=== PATIENT | female | born 1990 | race Caucasian/White ===

== ENCOUNTER 2019-12-16 14:48 | Inpatient (IN) ==
[2019-12-16] MEDS ORDERED: HYDROmorphone INJ 0.5 MG/0.5 ML SYR IV STA (15:47)
[2019-12-16] MEDS ORDERED: KETOROLAC 30 MG/ML VIAL IV STA (15:47)
[2019-12-16] MEDS ORDERED: CYCLOBENZAPRINE HCL 10 MG TAB PO STA (15:47)
--- NOTE | 2019-12-16 15:53 | Emergency Department Note ---
History of Present Illness General Chief Complaint: Back Injury/Pain Stated Complaint: HERNIATED DISC History of Present Illness This patient is a 29-year-old female who presents ambulatory to the emergency department for evaluation of severe back pain down the back of her left leg. This pain has been ongoing. The patient was seen in the emergency department last evening. She followed up as scheduled with Dr. Muir this morning. They report that they are going to likely schedule surgery. The patient was discharged home with prednisone and oxycodone. She has been taking her medication as prescribed with no relief. She denies any urinary or bowel incontinence, however it is harder to urinate. She does report some tingling into the left side of her genitalia. She denies any weakness in her legs bilaterally. Home Medications Home Medications Medication Instructions Recorded Confirmed Type acetaminophen [Tylenol Extra 500 mg PO Q6H PRN 12/05/19 12/05/19 History Strength] oxycodone 5 mg PO BID PRN 12/05/19 12/05/19 History methylprednisolone [Medrol (Wilver)] 4 mg PO DAILY #21 ea 12/15/19 Rx oxycodone 5 mg PO Q4H PRN #15 tab 12/15/19 Rx Allergies Allergy/AdvReac Type Severity Reaction Status Date / Time No Known Allergies Allergy Verified 12/05/19 14:19 Past Med/Surg History Medical History Chronic back pain Surgical History History of tooth extraction wisdom teeth Family History Grandmother Diabetes Social History Preferred Language: Syriac Communication Ability: Effective Pharmacy Coordinator Required: No Beliefs That Will Affect Care: None marital status: Single Current Living Situation: Alone current occupational status: student Other Information That Helps Us Care for You: No Feels Safe at Home: Yes Safety Concerns: Feels Safe At This Time Smoking Status: Never smoker Second Hand Exposure: No ; Hx Alcohol Use: Yes Alcohol type: wine Hx Substance Use: No Review of Systems A total of 10 systems reviewed and were otherwise negative Physical Exam Vital Signs Vital Signs - 24 hr 12/16/19 14:53 Temperature 36.9 C Temperature Source Oral Pulse Rate 107 H Respiratory Rate 18 Respiratory Effort / Characteristics Non-Labored Respiratory Depth Normal Respiratory Pattern Regular Blood Pressure 123/77 Blood Pressure Mean 92 Blood Pressure Position Sitting Pulse Oximetry 99 Oxygen Delivery Method Room Air Sepsis Recent Fever Within 48 Hours No Sepsis New/Unexplained Change in Mental Status No Sepsis Action Taken by Nursing No Action Required Constitutional WD/WN, vitals as above Eyes EOM intact bilaterally ENMT external ear and nose normal, oropharynx normal Neck trachea midline Respiratory normal respiratory effort, lungs clear to auscultation Cardiovascular RRR, no murmur, no edema Musculoskeletal Tenderness to palpation over the lumbar spinous processes and left SI joint. Dorsiflexion of the left foot 4/5. Dorsiflexion of the right foot 5/5. Plantar flexion left foot 4/5. Plantar flexion right foot 5/5. Quadricep and hamstring strength 5/5 bilaterally. Sensation in the lower extremities intact bilaterally. Skin no rashes, warm and dry Neurologic Alert and oriented x3. No focal motor deficits. Psychiatric Acting appropriately Course Course Patient was seen and examined Vital signs including blood pressure were reviewed medications list was verified with patient Labs were obtained, and a saline lock was established Medications ordered. Case was discussed with the spine orthopedic team. Patient was reassessed. We discussed the plan. She was comfortable with this plan. The case was also discussed with the hospitalist team. They agreed to admit the patient for further pain management. Consultations Consultation #1: Bishop Kaye PA-C spine surgery Consultation #2: [facility] hospitalist team Administered Medications Acetaminophen (Tylenol) 650 mg PO Q4H PRN PRN Reason: pain/fever Stop: 01/15/20 19:39 Last Admin: 12/16/19 23:32 Dose: 650 mg Documented by: [id number] Cyclobenzaprine HCl (Flexeril) 10 mg PO TID BRENNA Stop: 01/15/20 20:59 Last Admin: 12/17/19 20:46 Dose: 10 mg Documented by: [id number] Admin: 12/17/19 14:41 Dose: 10 mg Documented by: [id number] Admin: 12/17/19 08:35 Dose: 10 mg Documented by: [id number] Admin: 12/16/19 20:36 Dose: 10 mg Documented by: [id number] Docusate Sodium (Colace) 100 mg PO BID [facility] Stop: 01/16/20 20:59 Last Admin: 12/17/19 20:46 Dose: 100 mg Documented by: [id number] Lactated Ringer's (Lr) 1,000 mls @ 80 mls/hr IV .[id number] [facility] Stop: 12/18/19 18:10 Last Admin: 12/17/19 20:49 Dose: 80 mls/hr Documented by: [id number] Ketorolac Tromethamine (Toradol) 30 mg IV Q6H PRN PRN Reason: Pain Stop: 12/21/19 19:39 Last Admin: 12/17/19 19:25 Dose: 30 mg Documented by: [id number] Admin: 12/16/19 22:27 Dose: 30 mg Documented by: [id number] Morphine Sulfate (Morphine Sulfate) 2 mg IV Q2H PRN PRN Reason: Pain Stop: 12/31/19 03:38 Last Admin: 12/17/19 10:51 Dose: 2 mg Documented by: [id number] Admin: 12/17/19 08:36 Dose: 2 mg Documented by: [id number] Discontinued Medications Bacitracin (Bacitracin) Confirm Administered Dose 50,000 units .ROUTE .STK-MED ONE Stop: 12/17/19 16:14 Last Admin: 12/17/19 17:10 Dose: 50,000 units Documented by: [id number] Bupivacaine HCl/Epinephrine Bitart (Sensorcaine/Epinephrine 0.5% Mpf 1:200,000) Confirm Administered Dose 30 ml .ROUTE .STK-MED ONE Stop: 12/17/19 16:14 Last Admin: 12/17/19 16:58 Dose: 15 ml Documented by: [id number] Cefazolin Sodium (Ancef 1000mg) Confirm Administered Dose 1,000 mg IV .STK-MED ONE Stop: 12/17/19 15:58 Last Admin: 12/17/19 16:27 Dose: 1,000 mg Documented by: [id number] Cyclobenzaprine HCl (Flexeril) 10 mg PO NOW STA Stop: 12/16/19 15:48 Last Admin: 12/16/19 16:19 Dose: 10 mg Documented by: [id number] Cyclobenzaprine HCl (Flexeril) 10 mg PO NOW STA Stop: 12/16/19 17:10 Last Admin: 12/16/19 17:31 Dose: Not Given Documented by: [id number] Enoxaparin Sodium (Lovenox) 40 mg SQ Q24H BRENNA Stop: 01/15/20 20:59 Last Admin: 12/16/19 20:57 Dose: Not Given Documented by: [id number] Fentanyl Citrate (Fentanyl Citrate) 100 mcg IV NOW STA Stop: 12/17/19 15:46 Last Admin: 12/17/19 15:50 Dose: 100 mcg Documented by: [id number] Fentanyl Citrate (Fentanyl Citrate) Confirm Administered Dose 100 mcg .ROUTE .STK-MED ONE Stop: 12/17/19 15:49 Last Admin: 12/17/19 18:44 Dose: Not Given Documented by: [id number] Hydromorphone HCl (Dilaudid) 0.5 mg IV NOW STA Stop: 12/16/19 15:48 Last Admin: 12/16/19 16:19 Dose: 0.5 mg Documented by: [id number] Hydromorphone HCl (Dilaudid) 0.5 mg IV Q6H PRN PRN Reason: Pain Stop: 12/30/19 19:39 Last Admin: 12/17/19 02:05 Dose: 0.5 mg Documented by: [id number] Admin: 12/16/19 19:54 Dose: 0.5 mg Documented by: [id number] Cefazolin Sodium (Ancef 1000mg) 1,000 mg in 7.5 mls @ 2.5 mls/min IV PREOP BRENNA Stop: 12/17/19 18:00 Last Admin: 12/17/19 18:45 Dose: Not Given Documented by: [id number] Ketorolac Tromethamine (Toradol) 30 mg IV NOW STA Stop: 12/16/19 15:48 Last Admin: 12/16/19 16:19 Dose: 30 mg Documented by: [id number] Miscellaneous (Floseal Hemostatic Matrix 10ml) 10 ml TOP ONCE ONE Stop: 12/17/19 17:01 Last Admin: 12/17/19 17:12 Dose: 3 ml Documented by: [id number] Morphine Sulfate (Morphine Sulfate) Confirm Administered Dose 2 mg .ROUTE .STK-MED ONE Stop: 12/17/19 03:48 Last Admin: 12/17/19 03:50 Dose: 2 mg Documented by: [id number] Medical Decision Making Differential Diagnosis lumbar radiculopathy, strain of lumbar region, infection, lumbago, cauda equina and cord compression Medical Records Attestation: I reviewed the patient's medical records. Home Medications Current Medication List: was personally reviewed by me Laboratory Data Attestation: I reviewed the patient's lab results. Result diagrams: 12/17/19 08:15 12/17/19 08:15 Lab Results 12/16/19 12/16/19 12/16/19 Range/Units 16:05 16:05 16:05 WBC 17.29 H D (4.8-10.8) K/uL RBC 4.10 L (4.2-5.4) M/uL Hgb 13.9 (12.0-16.0) g/dL Hct 40.2 (37-47) % MCV 98.0 (80-100) fL MCH 33.9 (25-34) pg MCHC 34.6 (32-36) g/dL RDW Std Deviation 45.9 (36.4-46.3) fL RDW Coeff of Ciro 12.8 (11.5-14.5) % Plt Count 276 (130-400) K/uL MPV 9.6 (7.4-10.4) fL Immature Gran % (Auto) 0.3 % Neut % (Auto) 84.9 % Lymph % (Auto) 8.6 % [place] % (Auto) 6.0 % Eos % (Auto) 0.1 % Baso % (Auto) 0.1 % Immature Gran # (Auto) 0.05 H (0.00-0.02) K/uL Neut # (Auto) 14.71 H (1.4-6.5) K/uL Lymph # (Auto) 1.48 (1.2-3.4) K/uL [place] # (Auto) 1.03 H (0.11-0.59) K/uL Eos # (Auto) 0.01 (0-0.5) K/uL Baso # (Auto) 0.01 (0-0.2) K/uL Sodium 137 (136-145) mmol/L Potassium 3.7 (3.5-5.1) mmol/L Chloride 105 (98-107) mmol/L Carbon Dioxide 25 (21-32) mmol/L Anion Gap 7.0 (3-11) BUN 17 (7-18) mg/dl Creatinine 0.86 (0.6-1.2) mg/dl Est Cr Clr Drug Dosing 85.3 ml/min Est GFR ( Amer) 104.3 Est GFR (Non-Af Amer) 90.0 BUN/Creatinine Ratio 19.6 (10-20) Glucose 100 H (70-99) mg/dl Calcium 9.6 (8.5-10.1) mg/dl HCG, Qual Negative (Negative) Imaging Data Attestation: I personally reviewed and interpreted this imaging study as follows: MDM Narrative This patient is a 29-year-old female that presents to the emergency department complaining of ongoing severe back and leg pain. She was seen in the emergency department yesterday. Past medical records were reviewed. The patient had a recent MRI. She does have a large bulge disc. This is likely the cause of her symptoms. Case was discussed with orthopedics. As she has failed outpatient management with oxycodone steroids, hospitalist and orthopedics was consulted. Inpatient management was felt appropriate. The patient was in agreement. Impression & Plan Herniated nucleus pulposus, L5-S1, left Discharge Plan Visit Data *Final* Discharge Date/Time: 12/16/19 19:23 Chief Complaint: Back Injury/Pain Stated Complaint: HERNIATED DISC ED Provider: Chris Cote ED Midlevel Provider: Keara Smith Discharge Problem: Herniated nucleus pulposus, L5-S1, left Patient Disposition: Admitted As Inpatient Condition: Fair Discharge Instructions Interventions: ED Discharge Assessment Last Done: 12/16/19 19:23
[2019-12-16 16:26] LABS: Basophils # (auto) 0.01 K/uL (0-0.2); Basophils % (auto) 0.1 %; Eosinophils # (auto) 0.01 K/uL (0-0.5); Eosinophils % (auto) 0.1 %; Hematocrit (blood only) 40.2 % (37-47); Hemoglobin 13.9 g/dL (12.0-16.0); Immature Granulocytes # (auto) 0.05 K/uL (0.00-0.02); Immature Granulocytes % (auto) 0.3 %; Lymphocytes # (auto) 1.48 K/uL (1.2-3.4); Lymphocytes % (auto) 8.6 %; Mean Corpuscular Hemoglobin 33.9 pg (25-34); Mean Corpuscular Hgb Conc 34.6 g/dL (32-36); Mean Platelet Volume 9.6 fL (7.4-10.4); Monocytes # (auto) 1.03 K/uL (0.11-0.59); Neutrophils # (auto) 14.71 K/uL (1.4-6.5); Neutrophils % (auto) 84.9 %; Platelet Count 276 K/uL (130-400); RDW Coefficient of Variation 12.8 % (11.5-14.5); RDW Standard Deviation 45.9 fL (36.4-46.3); White Blood Count 17.29 K/uL (4.8-10.8)
[2019-12-16 16:43] LABS: BUN Creatinine Ratio 19.6 (10-20); Calcium 9.6 mg/dl (8.5-10.1); Creatinine Clr Calc Pharmacy 85.3 ml/min; Est GFR (African American) 104.3; Potassium 3.7 mmol/L (3.5-5.1)
[2019-12-16 17:00] LABS: Pregnancy Test, Serum Negative (Negative)
[2019-12-16] MEDS: CYCLOBENZAPRINE HCL 10 MG TAB PO STA ×2 (17:25→17:31)
--- NOTE | 2019-12-16 18:33 | History & Physical Report ---
Date of Service December 16, 2019 Assessment & Plan (1) Left lumbar radiculitis: Patient has a severely herniated L5-S1 disc. Will admit for pain management. I discussed defer modalities and the patient is doing well with the combination of drugs that were given in the emergency room as well continues. I did discuss steroids and the patient is refusing further IV steroids at this time. Will consult Dr. Muir service. As requested, will keep patient n.p.o. for now. Patient was told she can ambulate to tolerance but should let nursing know beforehand. History of Present Illness Primary Care Provider: [facility] This is a 29-year-old female with a past medical history that presents today complaining of severe back pain with radiculopathy. Patient is a good his brendan, accompanied by her mother. Patient had a minor injury when lifting a box back in September. This resulted in slow worsening of lower back pain. Pain became quite severe and she sought medical attention with pain management. She actually had an epidural steroid injection on 12/[address] Sun that was unsuccessful. Patient initial evaluation at Dr. Mai's office with eventual plans for some surgical intervention. However, the pain became very severe despite multiple oral medications and the patient presented here for further management. In the time my evaluation, the patient was much more comfortable. She been given Flexeril, Toradol, and Dilaudid which seemed to help. The emergency room PA has already been in contact Dr. Muir service and there tentative plans for possible surgical intervention in the morning. Patient will therefore be made n.p.o. overnight until she is evaluated in the morning by their service. Allergies Allergy/AdvReac Type Severity Reaction Status Date / Time No Known Allergies Allergy Verified 12/05/19 14:19 Home Medications Home Medications Medication Instructions Recorded Confirmed Type acetaminophen [Tylenol Extra 500 mg PO Q6H PRN 12/05/19 12/05/19 History Strength] oxycodone 5 mg PO BID PRN 12/05/19 12/05/19 History methylprednisolone [Medrol (Wilver)] 4 mg PO DAILY #21 ea 12/15/19 Rx oxycodone 5 mg PO Q4H PRN #15 tab 12/15/19 Rx Past Med/Surg History Medical History Chronic back pain Surgical History History of tooth extraction wisdom teeth Family History Grandmother Diabetes Social History Preferred Language: Gambian Communication Ability: Effective Lettuce Cutter Required: No Beliefs That Will Affect Care: None marital status: Single Current Living Situation: Alone current occupational status: student Feels Safe at Home: Yes Smoking Status: Never smoker Second Hand Exposure: No ; Hx Alcohol Use: Yes Alcohol type: wine Hx Substance Use: No Review of Systems Constitutional: no fever, no chills, no weakness, no weight loss and no weight gain Eyes: as per Subjective / HPI Respiratory: no cough, no chest congestion, no dyspnea and no dyspnea on exertion Cardiovascular: no chest pain, no orthopnea, no palpitations, no lightheadedness and no edema Gastrointestinal: no abdominal pain, no nausea, no vomiting, no constipation and no diarrhea/loose stools Genitourinary: no dysuria, no difficulty urinating, no urinary frequency, no urinary hesitancy, no urinary urgency and no flank pain Musculoskeletal: + back pain and + myalgia; no neck pain, no joint pain and no stiffness Integumentary: no rash Neurologic: no gait abnormality, no unsteadiness, no falls and no generalized weakness Physical Exam Constitutional: cooperative; no acute distress Neck: trachea midline, no thyromegaly Respiratory: normal respiratory effort Auscultation: lungs clear to ausc ultation bilaterally; no crackles, no rales, no rhonchi and no wheezes Cardiovascular: Rate/Rhythm: regular rate and regular rhythm Heart Sounds: normal S1, normal S2 and + murmur Gastrointestinal (Abdomen): Inspection/Auscultation: abdomen normal to inspection Percussion/Palpation: abdomen soft; abdomen nontender, no guarding, abdomen not rigid and no hepatosplenomegaly Skin: no rashes, warm and dry Results & Data Vital Signs (Past 12 Hours) Vital Signs Temp Pulse Pulse Resp BP BP Pulse Ox 12/16/19 16:26 78 20 129/74 100 12/16/19 14:53 36.9 C 107 H 18 123/77 99 Diagnostic Findings MR lumbar spine wo con CLINICAL HISTORY: Back pain with left-sided radiculopathy. TECHNIQUE: Sagittal and axial T1, T2 and STIR images were obtained. COMPARISON STUDY: No previous studies for comparison. OBSERVATIONS: The vertebral bodies and posterior elements appear intact. There is no abnormal bony signal present to suggest a marrow replacement process. L1-2: No disc protrusions or extrusions. No evidence of spinal canal or neural foraminal compromise. L2-3: No disc protrusions or extrusions. No evidence of spinal canal or neural foraminal compromise. L3-4: There is a small broad-based central disc protrusion with minimal deformity of the anterior thecal sac. There is no significant foraminal narrowing L4-5: There is an annular fissure and mild circumferential disc bulge. There is no significant spinal or foraminal stenosis L5-S1: There is a very large left-sided extruded disc herniation. Disc material fills the left lateral recess and impinges on the left S1 nerve root. The disc material at the level of the left lateral recess measures approximately 13 mm. The conus medullaris and cauda equina appear normal. IMPRESSION: 1. Very large left-sided extruded disc herniation at the L5-S1 level. Disc material fills the left lateral recess and impinges on the left S1 nerve root. 2. Small broad-based central disc protrusion at the L3-4 level, and annular fissure and mild circumferential disc bulge at the L4-5 level. PG Care Time/CCT Total # of Minutes Spent Total Time Spent with Patient: Total time spent is greater than 50% in coordination of care (as documented) at patient's floor/unit and/or counseling patient: Coding Level of Care Code 12407 Initial Inpt Care Lvl 3 Diagnoses Left lumbar radiculitis M54.16
[2019-12-16] MEDS ORDERED: ZOLPIDEM TARTRATE 5 MG TAB PO PRN (19:40)
[2019-12-16] MEDS ORDERED: ONDANSETRON INJ 2 MG/ML 2 ML VIAL IV PRN (19:40)
[2019-12-16] MEDS: HYDROmorphone INJ 0.5 MG/0.5 ML SYR IV PRN (19:54)
[2019-12-16] MEDS: CYCLOBENZAPRINE HCL 10 MG TAB PO SCH (20:36)
[2019-12-16] MEDS ORDERED: ENOXAPARIN INJ 40 MG/0.4 ML SYR SQ SCH (21:00)
[2019-12-16 21:27] LABS: Appearance Urine Clear (Clear); Bacteria Urine Automated 1+ (Negative); Bilirubin Urine Negative (Negative); Blood Urine Negative (Negative); Color Urine Dark Yellow; Epithelial Cell Urine Auto >30 /lpf (0-5); Glucose Urine UA Negative (Negative); Ketones Urine Negative (Negative); Leukocyte Esterase Urine Trace (Negative); Nitrite Urine Negative (Negative); Protein Urine Negative (Negative); RBC Urine Automated 0-4 /hpf (0-4); Specific Gravity Urine 1.032 (1.000-1.030); Urobilinogen Urine Negative (Negative); pH Urine 5.5 (4.5-7.5)
[2019-12-16] MEDS: KETOROLAC 30 MG/ML VIAL IV PRN (22:27)
[2019-12-16] MEDS: ACETAMINOPHEN 325 MG TAB PO PRN (23:32)
[2019-12-17] MEDS: HYDROmorphone INJ 0.5 MG/0.5 ML SYR IV PRN (02:05)
[2019-12-17] MEDS ORDERED: MoRPHine SULFATE 2 MG/ML CARP ONE (03:47)
[2019-12-17] MEDS: CYCLOBENZAPRINE HCL 10 MG TAB PO SCH ×3 (08:35→20:46)
[2019-12-17] MEDS: MoRPHine SULFATE 2 MG/ML CARP IV PRN ×2 (08:36→10:51)
[2019-12-17 08:47] LABS: Basophils # (auto) 0.02 K/uL (0-0.2); Basophils % (auto) 0.3 %; Eosinophils # (auto) 0.04 K/uL (0-0.5); Eosinophils % (auto) 0.5 %; Hematocrit (blood only) 37.3 % (37-47); Hemoglobin 12.5 g/dL (12.0-16.0); Immature Granulocytes # (auto) 0.02 K/uL (0.00-0.02); Immature Granulocytes % (auto) 0.3 %; Lymphocytes # (auto) 2.62 K/uL (1.2-3.4); Lymphocytes % (auto) 34.7 %; Mean Corpuscular Hgb Conc 33.5 g/dL (32-36); Mean Corpuscular Volume 98.4 fL (80-100); Mean Platelet Volume 9.7 fL (7.4-10.4); Monocytes # (auto) 0.64 K/uL (0.11-0.59); Monocytes % (auto) 8.5 %; Neutrophils # (auto) 4.21 K/uL (1.4-6.5); Neutrophils % (auto) 55.7 %; Platelet Count 209 K/uL (130-400); RDW Coefficient of Variation 13.2 % (11.5-14.5); RDW Standard Deviation 47.2 fL (36.4-46.3); Red Blood Count 3.79 M/uL (4.2-5.4); White Blood Count 7.55 K/uL (4.8-10.8)
[2019-12-17 09:12] LABS: Calcium 8.8 mg/dl (8.5-10.1); Creatinine Clr Calc Pharmacy 99.1 ml/min; Est GFR (African American) 125.1; Magnesium 2.1 mg/dl (1.8-2.4); Potassium 3.9 mmol/L (3.5-5.1)
--- NOTE | 2019-12-17 12:25 | Orthopedic Consultation ---
Date of Consultation December 17, 2019 Assessment & Plan (1) Herniated nucleus pulposus, L5-S1, left: At this time a long discussion with the patient and her mother reviewing her MRI findings clinical course and recommendations. This point she would like to pursue surgical intervention. Would require a lumbar laminectomy L5-S1 the left with excision of herniated free fragment. Risk benefits pros cons and alternatives were outlined in detail. Risks include but not limited to from anesthesia blindness stroke paralysis nerve damage blood los requiring transfusion infection requiring reoperation benefits hopefully marked improvement of her radicular symptoms. At this time we will try to perform surgery as soon as possible she is n.p.o. at this time. Present on Admission?: Yes History of Present Illness Reason for Consultation: Back and leg pain Attending Physician: Albert Crooks History of Present Illness This is a 29-year-old female that had several weeks of severe back and left leg pain. She is tried a course of nonoperative care medications and therapy without any improvement. Her symptoms involve the left buttock posterior thigh extending into the calf. She is noting significant deficits to strength in the left calf. The right lower extremity is asymptomatic. She denies any loss of bowel bladder control. Allergies Allergy/AdvReac Type Severity Reaction Status Date / Time No Known Allergies Allergy Verified 12/05/19 14:19 Home Medications Home Medications Medication Instructions Recorded Confirmed Type acetaminophen [Tylenol Extra 500 mg PO Q6H PRN 12/05/19 12/05/19 History Strength] oxycodone 5 mg PO BID PRN 12/05/19 12/05/19 History methylprednisolone [Medrol (Wilver)] 4 mg PO DAILY #21 ea 12/15/19 Rx oxycodone 5 mg PO Q4H PRN #15 tab 12/15/19 Rx Patient History Medical History Chronic back pain Surgical History History of tooth extraction wisdom teeth Family History Grandmother Diabetes Social History Preferred Language: Sami Communication Ability: Effective Cartoon Animator Required: No Beliefs That Will Affect Care: None marital status: Single Current Living Situation: Alone current occupational status: student Other Information That Helps Us Care for You: No Feels Safe at Home: Yes Safety Concerns: Feels Safe At This Time Smoking Status: Never smoker Second Hand Exposure: No ; Hx Alcohol Use: Yes Alcohol type: wine Hx Substance Use: No Physical Exam Physical Exam: Patient is alert and oriented. She exhibits marked tension signs straight leg is on the left negative on the right. She is unable to perform single heel raise on the left compared to the right. Sensory is intact. Results [facility] Vital Signs (Past 12 Hours) Vital Signs Temp Pulse Resp BP Pulse Ox 12/17/19 07:48 36.8 C 74 16 107/64 99
[2019-12-17] MEDS ORDERED: NEOSTIGMINE METHYLSULFATE 1 MG/ML 10ML VIAL ONE (15:04)
[2019-12-17] MEDS ORDERED: fentaNYL citrate 100 MCG/2 ML VIAL ONE ×2 (15:04→15:48)
[2019-12-17] MEDS ORDERED: MIDAZOLAM HCL 1 MG/ML 2ML VIAL ONE (15:04)
[2019-12-17] MEDS ORDERED: HYDROmorphone INJ 2 MG/ML SYR/VIAL ONE (15:04)
[2019-12-17] MEDS ORDERED: LIDOCAINE HCL 2% 2 ML VIAL/AMP(20MG/ML) INFIL ONE (15:04)
[2019-12-17] MEDS ORDERED: PROPOFOL IV EMULSION 10 MG/ML 20 ML VIAL IV ONE (15:04)
[2019-12-17] MEDS ORDERED: ROCURONIUM BROMIDE 10 MG/ML 5 ML VIAL ONE (15:04)
[2019-12-17] MEDS ORDERED: ONDANSETRON INJ 2 MG/ML 2 ML VIAL ONE (15:04)
[2019-12-17] MEDS ORDERED: GLYCOPYRROLATE 0.2 MG/ML VIAL ONE (15:04)
[2019-12-17] MEDS ORDERED: DEXAMETHASONE SOD INJ 4 MG/ML VIAL ONE (15:04)
[2019-12-17] MEDS ORDERED: fentaNYL citrate 100 MCG/2 ML VIAL IV STA (15:45)
--- NOTE | 2019-12-17 15:45 | Anesthesiology Consultation ---
Date of Service December 17, 2019 Assessment & Plan (1) Encounter for pre-operative examination: Chart Review Chart Review: Acceptable Risk for Surgery and Patient NOT seen in Pre Admission Testing Consults Requested none ASA ASA1 Proposed Anesthesia Anesthesia Type: General Risk / Benefits Reviewed With: PT / POA / Parent / Guardian, Accepts Plan and Informed Consent Obtained History Surgery Operation Date: 12/17/19 08:55 Proposed Procedures p L5-S1 Laminectomy on Left - Arsh Muir, Height/Weight Height: 5 ft 5 in Weight: 57.5 kg Allergies Allergy/AdvReac Type Severity Reaction Status Date / Time No Known Allergies Allergy Verified 12/05/19 14:19 Medications Home Medications Medication Instructions Recorded Confirmed Last Taken acetaminophen [Tylenol Extra 500 mg PO Q6H PRN 12/05/19 12/05/19 Unknown Strength] oxycodone 5 mg PO BID PRN 12/05/19 12/05/19 Unknown methylprednisolone [Medrol (Wilver)] 4 mg PO DAILY #21 ea 12/15/19 Unknown oxycodone 5 mg PO Q4H PRN #15 tab 12/15/19 Unknown Active Medications Generic Name Dose Route Start Last Admin Trade Name Freq PRN Reason Stop Dose Admin Acetaminophen 650 mg 12/16/19 19:40 12/16/19 23:32 Tylenol PO 01/15/20 19:39 650 mg Q4H PRN Administration pain/fever Cyclobenzaprine HCl 10 mg 12/16/19 21:00 12/17/19 14:41 Flexeril PO 01/15/20 20:59 10 mg TID BRENNA Administration Enoxaparin Sodium 40 mg 12/16/19 21:00 12/16/19 20:57 Lovenox SQ 01/15/20 20:59 Not Given Q24H BRENNA Ketorolac Tromethamine 30 mg 12/16/19 19:40 12/16/19 22:27 Toradol IV 12/21/19 19:39 30 mg Q6H PRN Administration Pain Morphine Sulfate 2 mg 12/17/19 03:39 12/17/19 10:51 Morphine Sulfate IV 12/31/19 03:38 2 mg Q2H PRN Administration Pain NPO Date Last Intake of Fluids: 12/17/19 Time Last Intake of Fluids: 00:00 Last Intake of Fluids Comment: sips/ice chips Date Last Intake of Solids: 12/16/19 Time Last Intake of Solids: 22:00 Past Medical History Medical History Chronic back pain Exercise / Class Metabolic Activity II 4-5 Yardwork/Stairs/Walk up hill Past Family History Family History Grandmother Diabetes Past Surgical History Surgical History History of tooth extraction wisdom teeth Past Anesthesia History No Hx of Anesthesia Complications and No Family Hx of Anesthesia Complications History of PONV No Hx of PONV and No Hx of Motion Sickness Social History Smoking Status: Never smoker Hx Alcohol Use: Yes Alcohol type: wine alcohol intake frequency: a few times a week Hx Substance Use: No substance use type: does not use Physical Exam Vital Signs Last Vital Signs Temp 36.9 C 12/17/19 15:15 Pulse 72 12/17/19 15:15 Resp 18 12/17/19 15:15 BP 110/70 12/17/19 15:15 Pulse Ox 100 12/17/19 15:15 ENMT Mouth: no dentition abnormality Thyromental Distance: > or= 3.5 Finger Breadths Mallampati Class: II Neck normal visual inspection Respiratory normal respiratory effort Auscultation: lungs clear to auscultation bilaterally Cardiovascular Rate/Rhythm: regular rate and regular rhythm Psychiatric Orientation: alert Testing Laboratory Results 12/17/19 08:15 12/17/19 08:15 Urine Color Dark Yellow 12/16/19 21:00 Urine Appearance Clear (Clear) 12/16/19 21:00 Urine pH 5.5 (4.5-7.5) 12/16/19 21:00 Ur Specific [place] 1.032 (1.000-1.030) H 12/16/19 21:00 Urine Protein Negative (Negative) 12/16/19 21:00 Urine Glucose (UA) Negative (Negative) 12/16/19 21:00 Urine Ketones Negative (Negative) 12/16/19 21:00 Urine Nitrite Negative (Negative) 12/16/19 21:00 Ur Leukocyte Esterase Trace (Negative) H 12/16/19 21:00 Urine WBC (Auto) 10-30 /hpf (0-5) H 12/16/19 21:00 Urine RBC (Auto) 0-4 /hpf (0-4) 12/16/19 21:00 U Hyaline Cast (Auto) 5-10 /lpf (0-5) H 12/16/19 21:00 U Epithel Cells (Auto) >30 /lpf (0-5) H 12/16/19 21:00 Urine Bacteria (Auto) 1+ (Negative) H 12/16/19 21:00 12/16/19 21:00 Urine Culture - Preliminary Urine,Clean Catch Pin-point growth present, reincubating.
[2019-12-17] MEDS ORDERED: CEFAZOLIN 1,000 MG/7.5 ML IV PUSH IV ONE (15:57)
[2019-12-17] MEDS ORDERED: CEFAZOLIN 1000MG 1,000 MG/7.5 ML SYR IV SCH ×2 (16:00)
[2019-12-17] MEDS ORDERED: BACITRACIN INJ 50,000 UNIT VIAL ONE (16:13)
[2019-12-17] MEDS ORDERED: BUPIVACAINE/EPINEPHRINE 0.5% MPF 1:200,000 10 ML VIAL ONE (16:13)
[2019-12-17] MEDS ORDERED: HYDROmorphone INJ 2 MG/ML SYR/VIAL IV PRN (16:17)
[2019-12-17] MEDS ORDERED: ONDANSETRON INJ 2 MG/ML 2 ML VIAL IV PRN ×2 (16:17→18:11)
[2019-12-17] MEDS ORDERED: PROMETHAZINE HCL 6.25 MG in SODIUM CHLORIDE 0.9% 50 ML IV PRN (16:17)
[2019-12-17] MEDS ORDERED: fentaNYL citrate 100 MCG/2 ML VIAL IV PRN (16:17)
[2019-12-17] MEDS ORDERED: ePHEDrine sulfate 50 MG/ML AMP IV PRN (16:17)
[2019-12-17] MEDS ORDERED: ATROPINE SULFATE 0.1 MG/ML 10ML SYR IV PRN (16:17)
[2019-12-17] MEDS ORDERED: FLOSEAL HEMOSTATIC MATRIX 10ML TOP ONE (17:00)
--- NOTE | 2019-12-17 17:17 | Operative Report ---
Post Operative Report Pre & Post Diagnosis Operation Date: 12/17/19 08:55 Pre-Op Diagnosis: Herniated nucleus pulposus, L5-S1, left Post-Op Diagnosis: Herniated nucleus pulposus, L5-S1, left I identified the patient and participated in the time-out.: Yes Procedure Operation Date: 12/17/19 08:55 Actual Procedures Lumbar laminotomy L5-S1 on the left with excision of herniated free fragment Surgeon Arsh Muir, Utility Accounts Director Tiffanie Regalado Estimated Blood Loss 5 Findings Consistent with Post-Op Diagnosis Specimens Herniated free fragment L5-S1 on the left Indications This is a 29-year-old female who presents with above-mentioned diagnosis after failing course of nonoperative care is here for the above-mentioned procedure. Description of Procedure Patient was met with identified informed consent obtained. Patient was then taken to the operative suite underwent an patient placed in prone position the Gerson table on top of the Hector frame. All bony prominences well-padded eyes inspected to ensure no external pressure placed upon up at this point the lumbar spine was prepped and draped in a sterile fashion. With the assistance of fluoroscopy identified the L5-S1 to space and a small midline incision was created overlying this region. Sharp dissection with assistance of Bovie cautery was performed down to and exposing the interlaminar space at L5-S1 the left. Self-retaining doctors placed. I excised the lateral portion of ligamentum flavum and a small portion of the superior aspect of the S1 lamina to expose a severely compressed traversing S1 nerve root. In fact there is a massive fragment within the axillary region of the root. This was removed in its entirety. The area was then explored several times to ensure all fragments addressed then copiously irrigated and closed with 1 Vicryl in the fascia 2-0 Vicryl subcutaneously and 4 Monocryl for final skin closure. Steri-Strip sterile dressings placed per patient will continue PACU stable addition. Please note Tiffanie Regalado was present at the entire procedure involved the patient positioning complex portions of the surgery and final skin closure. I attest to the content of the Intraoperative Record and any orders documented therein. Any exceptions are noted below.
--- NOTE | 2019-12-17 17:26 | Fluoroscopy Report ---
FL spine 1V any level HISTORY: L5-S1 laminectomy. FLUOROSCOPY TIME: 2 seconds. FINDINGS: Intraoperative fluoroscopy was provided for the lumbar spine. 1 fluoroscopic spot images we re obtained. IMPRESSION: Fluoroscopy provided for a L5-S1 laminectomy. ACT 112: Negative or not required by law. The above report was generated using voice recognition software. It may contain grammatical, syntax or spelling errors. Electronically signed by: Venkat Ferguson M.D. 12/17/2019 5:24 PM
[2019-12-17] MEDS ORDERED: MAGNESIUM HYDROXIDE SUSP 30 ML UDC PO PRN (18:11)
[2019-12-17] MEDS ORDERED: LORazepam 1 MG TAB PO PRN (18:11)
[2019-12-17] MEDS ORDERED: LORazepam 1 MG/2 ML VIAL IV PRN (18:11)
[2019-12-17] MEDS ORDERED: ACETAMINOPHEN 500 MG TAB PO PRN (18:11)
[2019-12-17] MEDS ORDERED: KETOROLAC 30 MG/ML VIAL IV PRN (18:11)
[2019-12-17] MEDS ORDERED: OXYCODONE HCL IR 5 MG TAB (IMMEDIATE RELEASE) PO PRN ×2 (18:11)
[2019-12-17] MEDS ORDERED: DO NOT ADMINISTER FLU VACCINE PRN (18:11)
[2019-12-17] MEDS ORDERED: ACETAMINOPHEN 325 MG TAB PO PRN (18:11)
[2019-12-17] MEDS ORDERED: DO NOT ADMINISTER PNEUMOCOCCAL VACCINE PRN (18:11)
--- NOTE | 2019-12-17 18:27 | Anesthesiology Progress Note ---
Date of Service December 17, 2019 Anesthesia Post Procedure Vital Signs Vital Signs: Temp Pulse Pulse Pulse Resp BP Pulse Ox 12/17/19 18:15 97.7 F 66 14 109/72 100 12/17/19 18:05 97.5 F L 60 16 109/67 100 12/17/19 17:55 60 16 109/70 100 12/17/19 17:45 65 16 112/66 100 12/17/19 17:35 64 16 123/75 100 12/17/19 17:25 97.3 F L 107 H 10 L 131/72 100 12/17/19 16:20 71 20 122/86 98 12/17/19 15:50 87 16 106/75 98 12/17/19 15:15 98.4 F 72 18 110/70 100 12/17/19 07:48 98.2 F 74 16 107/64 99 12/16/19 23:18 98.2 F 90 16 110/70 98 12/16/19 19:45 98.2 F 72 16 122/80 100 Pain Intensity Back: Pain Intensity: 6 Transfer of Care Handoff Completed per policy Notes Mental Status: alert / awake / arousable and participated in evaluation Patient Amnestic to Procedure: Yes Nausea / Vomiting: adequately controlled Pain: adequately controlled Airway Patency, RR, SpO2: stable & adequate BP & HR: stable & adequate Hydration State: stable & adequate Anesthetic Complications: no major complications apparent and Pt Satisfied with anesthetic care
[2019-12-17] MEDS: KETOROLAC 30 MG/ML VIAL IV PRN (19:25)
[2019-12-17] MEDS: DOCUSATE SODIUM 100 MG CAP PO SCH (20:46)
[2019-12-17] MEDS: LACTATED RINGER'S 1,000 ML IV SCH (20:49)
[2019-12-17] MEDS: CEFAZOLIN 1000MG 1,000 MG/7.5 ML SYR IV SCH (23:19)
[2019-12-18] MEDS: ACETAMINOPHEN 325 MG TAB PO PRN ×2 (03:55→07:43)
[2019-12-18 06:16] LABS: Creatinine Clr Calc Pharmacy 97.8 ml/min; Est GFR (African American) 123.1; Est GFR (Non-African American) 106.2
[2019-12-18] MEDS: LACTATED RINGER'S 1,000 ML IV SCH ×2 (06:31→07:56)
--- NOTE | 2019-12-18 07:17 | Hospitalist Progress Note ---
Date of Service December 17, 2019 Assessment & Plan (1) Left lumbar radiculitis: Patient has a severely herniated L5-S1 disc. Will admit for pain management. s/p Lumbar laminotomy L5-S1 on the left with excision of herniated free fragment appreciate input from Ortho. DVT SCD Admission and Anticipated Discharge Date Admission Date: December 16, 2019 Subjective Patient was seen status post surgery. Patient currently has no new complaints. Review of Systems Constitutional: see below Eyes: as per Subjective / HPI Musculoskeletal: + back pain and + myalgia; no neck pain, no joint pain and no stiffness Physical Exam Constitutional: WD/WN, vitals as above well developed Eyes: PERRL, conjunctivae normal, anicteric sclerae ENMT: external ear and nose normal, oropharynx normal Neck: trachea midline, no thyromegaly Respiratory: normal respiratory effort, lungs clear to auscultation Cardiovascular: RRR, no murmur, no edema Gastrointestinal (Abdomen): normal bowel sounds, soft, nontender, no hepatosplenomegaly Musculoskeletal: Head/Neck/Chest: normocephalic Neurologic: PERRL, EOMI, accommodation nl, no face palsy, no dysarthria Psychiatric: A+Ox3, euthymic affect Lymphatic: no cervical or axillary lymphadenopathy Results & Data ([facility]) Vital Signs (Past 12 Hours) Vital Signs Temp Pulse Resp BP Pulse Ox 12/18/19 03:54 36.6 C 62 16 93/54 L 98 12/17/19 23:40 36.6 C 72 16 98/62 L 98 12/17/19 21:22 36.6 C 83 17 109/65 98 12/17/19 20:13 36.9 C 80 16 106/63 98 PG Care Time/CCT Total # of Minutes Spent Total Time Spent with Patient: Total time spent is greater than 50% in coordination of care (as documented) at patient's floor/unit and/or counseling patient: Coding Level of Care Code 50985 Subseq Hosp Care Lvl 2 Diagnoses Left lumbar radiculitis M54.16 Time Spent (min) 25
--- NOTE | 2019-12-18 07:40 | Anesthesiology Progress Note ---
Date of Service December 18, 2019 Anesthesia Post Procedure Vital Signs Vital Signs: Temp Pulse Pulse Pulse Resp BP Pulse Ox 12/18/19 07:17 36.7 C 63 16 103/60 100 12/18/19 03:54 36.6 C 62 16 93/54 L 98 12/17/19 23:40 36.6 C 72 16 98/62 L 98 12/17/19 21:22 36.6 C 83 17 109/65 98 12/17/19 20:13 36.9 C 80 16 106/63 98 12/17/19 19:15 37.0 C 93 H 18 123/76 100 12/17/19 18:45 36.4 C L 69 16 113/74 96 12/17/19 18:15 36.5 C 66 14 109/72 100 12/17/19 18:05 36.4 C L 60 16 109/67 100 12/17/19 17:55 60 16 109/70 100 12/17/19 17:45 65 16 112/66 100 12/17/19 17:35 64 16 123/75 100 12/17/19 17:25 36.3 C L 107 H 10 L 131/72 100 12/17/19 16:20 71 20 122/86 98 12/17/19 15:50 87 16 106/75 98 12/17/19 15:15 36.9 C 72 18 110/70 100 12/17/19 07:48 36.8 C 74 16 107/64 99 Pain Intensity Back: Pain Intensity: 6 Notes Mental Status: alert / awake / arousable and participated in evaluation Patient Amnestic to Procedure: Yes Nausea / Vomiting: adequately controlled Pain: adequately controlled Airway Patency, RR, SpO2: stable & adequate BP & HR: stable & adequate Hydration State: stable & adequate Anesthetic Complications: no major complications apparent and Pt Satisfied with anesthetic care
[2019-12-18] MEDS: KETOROLAC 30 MG/ML VIAL IV PRN (07:43)
[2019-12-18] MEDS: CEFAZOLIN 1000MG 1,000 MG/7.5 ML SYR IV SCH (07:45)
[2019-12-18] MEDS: DOCUSATE SODIUM 100 MG CAP PO SCH (09:25)
[2019-12-18] MEDS: CYCLOBENZAPRINE HCL 10 MG TAB PO SCH (09:25)
--- NOTE | 2019-12-18 14:04 | Discharge Summary ---
Date of Service December 18, 2019 Admission HPI Per Admitting Provider This is a 29-year-old female with a past medical history that presents today complaining of severe back pain with radiculopathy. Patient is a good historian, accompanied by her mother. Patient had a minor injury when lifting a box back in September. This resulted in slow worsening of lower back pain. Pain became quite severe and she sought medical attention with pain management. She actually had an epidural steroid injection on 12/[address] Sun that was unsuccessful. Patient initial evaluation at Dr. Mai's office with eventual plans for some surgical intervention. However, the pain became very severe despite multiple oral medications and the patient presented here for further management. In the time my evaluation, the patient was much more comfortable. She been given Flexeril, Toradol, and Dilaudid which seemed to help. The emergency room PA has already been in contact Dr. Muir service and there tentative plans for possible surgical intervention in the morning. Patient will therefore be made n.p.o. overnight until she is evaluated in the morning by their service. Principal Diagnosis Herniated nucleus pulposus L5-S1 Discharge Data Allergies Allergy/AdvReac Type Severity Reaction Status Date / Time No Known Allergies Allergy Verified 12/05/19 14:19 Consultations 12/16/19 18:21 ED Decision to Admit Stat 12/16/19 19:40 Consult Orthopedic Surgery Routine Procedures Performed Operation Date: 12/17/19 08:55 Actual Procedures p L5-S1 Laminectomy on Left - Arsh Muir DO Ordered Studies 12/17/19 14:00 FL fluoroscopy <1hr Routine FL spine 1V any level Routine Hospital Course (1) Herniated nucleus pulposus, L5-S1, left: Patient was admitted with intractable back and leg pain. Following day she underwent a lumbar laminotomy partial discectomy L5-S1 on the left. She tolerates well the next morning was up and ambulating without difficulty. Strength improving. Pain markedly improved. Subsequent discharge home. Discharge orders instructions from the chart for further review. Total Time Total Time Spent Total Time Spent (In Minutes): 20 minutes Discharge Plan Discharge Items Patient Disposition: Home - Self-Care Reason For Visit: INTRACTABLE BACK PAIN Discharge Diagnosis: Herniated nucleus pulposus L5-S1 Condition on Discharge: Fair Activity: As commented below Non-emergency contact: Primary Care Provider Call non-emergency contact if: you have any medication questions Follow-up/Referrals: Arsh Muir DO [Surgeon] - 12/29/19 8:15 am [facility] [Primary Care Provider] - 12/26/19 10:40 am Diet: Regular Addtl Attending Provider Instructions: ACTIVITY RECOMMENDATIONS: SELF CARE INSTRUCTIONS AFTER A LAMINECTOMY 1. No prolonged sitting (less than 30 minutes for the first 3 weeks after surgery). 2. No bending, lifting more than 5 pounds, or twisting (roll like a log when turning in bed). 3. You may shower 3 days after surgery if no drainage from wound. Thoroughly dry wound. Do not soak in the tub. 4. Please walk as much as you can for exercise. Gradually increase the distance that you walk as your endurance increases. 5. You may drive in 7-10 days if you are comfortable and no longer requiring pain medications. SPECIAL CARE INSTRUCTIONS: VERY IMPORTANT TO READ AND REVIEW A. Your surgical incision has been closed with a cosmetic suture under the skin that will dissolve in about 6 weeks. In 14 days, you can use a pair of clean scissors and cut the suture that is left outside of the skin at the ends of your incision. B. Complications are uncommon, but please contact us if you have any signs or symptoms of: 1. wound infection (fever higher than 102.5 degrees F, redness, separation of wound, drainage, or increasing pain from the incision) 2. blood clots in legs (pain, swelling, redness and warmth in legs) 3. urinary tract infection (fever higher than 102.5 degrees, burning upon urination or increased frequency of urination) 4. nerve problems (inability to walk on your toes or heels, numbness, loss of bowel or bladder control) 5. any other symptoms that concern you. C. Please call the office at if you have any concerns or questions about your operation or recovery. MANAGING PAIN AFTER SPINAL SURGERY 1. Narcotic medication is intended for short-term use and will be provided for surgical pain. Surgical pain usually lasts for a period of 4-6 weeks. Narcotic medication includes Percocet, Vicodin, Darvocet, Tylenol #3 or Lortab. 2. Longer-term pain is more appropriately treated with non-narcotic medication such as Tylenol ES. 3. Muscle spasm is not appropriately treated with narcotics. Muscle relaxers such as Soma, Flexeril or Skelaxin can be used along with Tylenol ES. 4. Remember that we all live with some "aches and pains". This is not unusual or uncommon after an injury or as we get older. 5. We will provide appropriate medication within the normal guidelines of their prescribed use. We will also be very cautious and aware of potential abuse and extended duration of patients' medication needs. 6. Please allow 2-3 days to process refills. Prescriptions will not be mailed but must be picked up at the office. FOLLOW UP VISIT: Keep your scheduled follow-up appointment. Any questions, please call the office at . Pending Studies at Discharge: No Stand-Alone Forms: My [facility], Opioid Pain Management, Smoking Cessation Medications and DC Order Prescriptions: New oxycodone 5 mg tablet 5 mg PO Q6H PRN (Reason: pain, severe) Qty: 14 RF: 0 Continued acetaminophen [Tylenol Extra Strength] 500 mg Tablet 500 mg PO Q6H PRN (Reason: Pain) RF: 0 oxycodone 5 mg Tablet 5 mg PO BID PRN (Reason: Pain) RF: 0 methylprednisolone [Medrol (Wilver)] 4 mg tablets,dose pack 4 mg PO DAILY Qty: 21 RF: 0 oxycodone 5 mg tablet 5 mg PO Q4H PRN (Reason: pain) Qty: 15 RF: 0 Discharge Orders: Discharge Order (Routine); Ordered 12/18/19 Ordered By: Arsh Muir Admission Data Admit Date/Time: 12/16/19 18:45 Attending Provider: Arsh Muir Admit Provider: Domingo Dowd Primary Care Provider: [facility] Other Providers: Arsh Muir ; Domingo Dowd Other Interventions: Discharge Summary Assessment (RN) Last Done: 12/18/19 11:21 DC Date/Time DO NOT enter until pt leaves facility: 12/18/19 13:31
[2019-12-19] MEDS ORDERED: bisacodyL 5 MG TABEC PO PRN (06:00)
== END 2019-12-18 13:31 | disposition home or self-care (01) | DRG 520 ==
LOC: ED 14:48 → SUATTDRO 18:45 → 3W 18:45
DX: M51.17 Intervertebral disc disorders with radiculopathy, lumbosacral region